=== PATIENT | female | born 1950 | race Caucasian/White ===

== ENCOUNTER → 2017-08-13 | Outpatient (CLI) | payer MEDICARE, MEDICAID | END | disposition home or self-care (01) | LOC: CFH 07:46 | PROVIDERS: ATTEND Family Medicine | DX: K83.8 Other specified diseases of biliary tract (principal); J18.9 Pneumonia, unspecified organism | CPT/HCPCS: 71046; 76700 ==

== ENCOUNTER → 2017-12-24 | Outpatient (CLI) | payer MEDICARE, MEDICAID | END | disposition home or self-care (01) | LOC: CFH 09:39 | PROVIDERS: ATTEND Nurse Practitioner Family | DX: J18.9 Pneumonia, unspecified organism (principal) | CPT/HCPCS: 71046 ==

== ENCOUNTER 2018-02-01 07:56 | Day surgery (SDC) | payer MEDICARE, MEDICAID ==
[~2018-02-01] VITALS: Ht 174 cm; Wt 68.3 kg
[~2018-02-01 07:56] MED LIST: BUPR300T49 PO; FLUO40CA9 PO; MORP100T27 PO; MORP30TA81 PO; MS CONTIN PO; ZOLP10TA PO
[2018-02-01 08:24] VITALS: BP 124/86
[2018-02-01] MEDS ORDERED: LACTATED RINGERS 1,000 ML IV SCH (08:29)
[2018-02-01] MEDS ORDERED: LIDOCAINE-MPF 1%, 2ML INFIL ONE (08:30)
[2018-02-01] MEDS ORDERED: PROPOFOL 10 MG/ML, 20ML ONE (09:21)
[2018-02-01] MEDS ORDERED: PROMETHAZINE 25 MG/ML, 1ML IV PRN (09:30)
[2018-02-01] MEDS ORDERED: FENTANYL PF 100 MCG/2ML IV PRN (09:30)
[2018-02-01] MEDS ORDERED: ONDANSETRON 2MG/ML, 2ML IV PRN (09:30)
[2018-02-01] MEDS ORDERED: OXYcodone 5 MG/5 ML ORAL.SOL UDC PO PRN (09:30)
[2018-02-01] MEDS ORDERED: ACETAMINOPHEN 325 MG TABLET PO PRN (09:30)
[2018-02-01] MEDS ORDERED: ONDANSETRON ODT 8 MG PO PRN (09:30)
== END 2018-02-01 11:10 | disposition home or self-care (01) ==
LOC: OUT 07:56
PROVIDERS: ATTEND Internal Medicine
DX: K31.89 Other diseases of stomach and duodenum (principal); K21.0 Gastro-esophageal reflux disease with esophagitis; J44.9 Chronic obstructive pulmonary disease, unspecified; F32.9 Major depressive disorder, single episode, unspecified; G89.29 Other chronic pain; F41.9 Anxiety disorder, unspecified; D64.9 Anemia, unspecified; Z98.890 Other specified postprocedural states; Z99.81 Dependence on supplemental oxygen; Z79.899 Other long term (current) drug therapy; Z88.1 Allergy status to other antibiotic agents; Z88.5 Allergy status to narcotic agent; Z80.0 Family history of malignant neoplasm of digestive organs; Z86.010 Personal history of colon polyps; Z87.39 Personal history of other diseases of the musculoskeletal system and connective tissue; Z85.828 Personal history of other malignant neoplasm of skin; Z87.891 Personal history of nicotine dependence; Z87.01 Personal history of pneumonia (recurrent); Z96.659 Presence of unspecified artificial knee joint
CPT/HCPCS: 43239; 88305; 93005; J2704; J7120

== ENCOUNTER → 2018-03-30 | Outpatient (CLI) | payer MEDICARE ==
[~2018-03-30] MED LIST changes: +MORP20CA17 PO; +Oxygen INH
== END | disposition home or self-care (01) ==
LOC: STAR 14:22
PROVIDERS: ATTEND Internal Medicine
DX: Z02.9 Encounter for administrative examinations, unspecified (principal)

== ENCOUNTER 2018-04-05 06:32 | Day surgery (SDC) | payer MEDICARE ==
[~2018-04-05] VITALS: Ht 177.8 cm; Wt 70.6 kg
[2018-04-05 06:56] VITALS: BP 113/78
[2018-04-05] MEDS ORDERED: LACTATED RINGERS 1,000 ML IV SCH (06:59)
[2018-04-05] MEDS ORDERED: LIDOCAINE-MPF 1%, 2ML INFIL ONE (07:00)
[2018-04-05] MEDS ORDERED: LIDOCAINE/PF 1%, 30ML ONE (07:04)
[2018-04-05] MEDS ORDERED: LABETALOL 5MG/ML, 20ML IV PRN (08:00)
[2018-04-05] MEDS ORDERED: PROCHLORPERAZINE 5 MG/ML, 2ML IV PRN (08:00)
[2018-04-05] MEDS ORDERED: MORPHINE SULFATE 4 MG/ML, 1ML IVPush PRN (08:00)
[2018-04-05] MEDS ORDERED: MEPERIDINE/PF 25MG/0.5ML IVPush PRN (08:00)
[2018-04-05] MEDS ORDERED: METOPROLOL 1 MG/ML, 5ML IV PRN (08:00)
[2018-04-05] MEDS ORDERED: ALBUTEROL SULFATE 2.5 MG/3 ML NPPB PRN (08:00)
[2018-04-05] MEDS ORDERED: EPHEDRINE 50 MG/ML, 1ML IVPush PRN (08:00)
[2018-04-05] MEDS ORDERED: ACETAMINOPHEN 325 MG TABLET PO PRN (08:00)
[2018-04-05] MEDS ORDERED: LORazepam 2 MG/ML, 1ML IVPush PRN (08:00)
[2018-04-05] MEDS ORDERED: MIDAZOLAM 1 MG/ML, 2ML IV PRN (08:00)
[2018-04-05] MEDS ORDERED: hydrALAzine 20 MG/ML, 1ML IV PRN (08:00)
[2018-04-05] MEDS ORDERED: OXYcodone 5 MG/5 ML ORAL.SOL UDC PO PRN (08:00)
[2018-04-05] MEDS ORDERED: FENTANYL PF 100 MCG/2ML IV PRN (08:00)
[2018-04-05] MEDS ORDERED: FENTANYL PF 100 MCG/2ML ONE (08:05)
[2018-04-05] MEDS ORDERED: MIDAZOLAM 1 MG/ML, 2ML ONE (08:05)
[2018-04-05] MEDS ORDERED: PROPOFOL 10 MG/ML, 20ML ONE (08:13)
[2018-04-05] MEDS ORDERED: ONDANSETRON 2MG/ML, 2ML ONE ×2 (08:14)
[2018-04-05] MEDS ORDERED: SUCCINYLCHOLINE 20 MG/ML, 10ML ONE (08:14)
[2018-04-05] MEDS ORDERED: DEXAMETHASONE 4 MG/ML, 1ML ONE (08:14)
== END 2018-04-05 11:00 | disposition home or self-care (01) ==
LOC: OUT 06:32
PROVIDERS: ATTEND Internal Medicine
DX: K83.8 Other specified diseases of biliary tract (principal); K44.9 Diaphragmatic hernia without obstruction or gangrene; K86.89 Other specified diseases of pancreas; F32.9 Major depressive disorder, single episode, unspecified; F41.9 Anxiety disorder, unspecified; D64.9 Anemia, unspecified; J44.9 Chronic obstructive pulmonary disease, unspecified; Z87.39 Personal history of other diseases of the musculoskeletal system and connective tissue; Z85.828 Personal history of other malignant neoplasm of skin; Z96.659 Presence of unspecified artificial knee joint; Z87.891 Personal history of nicotine dependence; Z88.5 Allergy status to narcotic agent; Z88.8 Allergy status to other drugs, medicaments and biological substances
CPT/HCPCS: 43237; J1100; J2250; J2704; J3010; J3490; J7120; J2405; J0330

== ENCOUNTER 2018-06-07 16:10 | Inpatient (IN) | payer MEDICARE ==
[~2018-06-07] VITALS: Ht 172.7 cm; Wt 64.8 kg
[2018-06-07] MEDS ORDERED: LORazepam 2 MG/ML, 1ML ONE (16:26)
[2018-06-07] MEDS ORDERED: ONDANSETRON 2MG/ML, 2ML ONE (16:27)
[2018-06-07] MEDS ORDERED: ONDANSETRON 2MG/ML, 2ML IVPush ONE (16:30)
[2018-06-07] MEDS ORDERED: LORazepam 2 MG/ML, 1ML IVPush PRN ×2 (16:30→18:30)
[2018-06-07 16:58] LABS: BASOPHILS # (AUTO) 0.02 x10^3/uL (0-0.1); BASOPHILS % (AUTO) 0 % (0-1); EOSINOPHILS # (AUTO) 0.02 x10^3/uL (0-0.4); EOSINOPHILS % (AUTO) 0 % (1-7); LYMPHOCYTES % (AUTO) 8 % (22-44); MD NO; MEAN CORPUSCULAR HEMOGLOBIN 27.3 pg (27.0-34.8); MEAN CORPUSCULAR HGB CONC 33.1 g/dL (32.4-35.8); MEAN CORPUSCULAR VOLUME 82.5 fL (80-100); MEAN PLATELET VOLUME 7.8 fL (7.4-10.4); MONOCYTES % (AUTO) 4 % (2-9); NEUTROPHILS # (AUTO) 8.49 x10^3/uL (1.8-6.8); NEUTROPHILS % (AUTO) 87 % (42-75); PLATELET COUNT 254 x10^3/uL (130-400); RED BLOOD COUNT 5.27 x10^6/uL (3.82-5.3)
[2018-06-07 17:04] LABS: INTERNATIONAL NORMALIZED RATIO 1.12 (0.93-1.1); PROTHROMBIN TIME 11.8 Seconds (9.6-11.5)
[2018-06-07 17:07] LABS: ALANINE AMINOTRANSFERASE 21 U/L (12-78); ALBUMIN 4.1 g/dL (3.4-5.0); ANION GAP 13 mmol/L (5-15); CALCIUM 9.1 mg/dL (8.5-10.1); CHLORIDE 104 mmol/L (98-107); CREATININE 1.03 mg/dL (0.55-1.02)
[2018-06-07 17:12] LABS: ALKALINE PHOSPHATASE 79 U/L (45-117); BILIRUBIN,TOTAL 0.6 mg/dL (0.2-1.0); TOTAL PROTEIN 8.5 g/dL (6.4-8.2); TROPONIN I < 0.015 ng/mL (0.000-0.045)
[2018-06-07] MEDS ORDERED: BACL20TA PO (17:21)
[2018-06-07] MEDS ORDERED: GABA-827 PO (17:21)
[2018-06-07] MEDS ORDERED: DIPH25CA61 PO (17:21)
[2018-06-07] MEDS ORDERED: DOXE10CA PO (17:22)
[2018-06-07] MEDS ORDERED: PANT20TA3 PO (17:23)
[2018-06-07] MEDS ORDERED: MELA1TAB6 PO (17:23)
[2018-06-07] MEDS ORDERED: POTASSIUM CHLORIDE 20 MEQ TAB.ER.PRT PO ONE (18:30)
[2018-06-07] MEDS ORDERED: POLYETHYLENE GLYCOL 17 GM PACKET PO PRN (18:30)
[2018-06-07] MEDS ORDERED: MELATONIN 3 MG TABLET PO PRN (18:30)
[2018-06-07] MEDS ORDERED: BISACODYL 10 MG SUPP PR PRN (18:30)
[2018-06-07] MEDS ORDERED: ONDANSETRON ODT 4 MG PO PRN (18:30)
[2018-06-07] MEDS ORDERED: hydrALAzine 20 MG/ML, 1ML IV PRN (19:00)
[2018-06-07 19:14] VITALS: BP 171/95
[2018-06-07 21:20] VITALS: BP 147/84
[2018-06-07] MEDS: GABAPENTIN 400 MG CAPSULE PO SCH (21:22)
[2018-06-07] MEDS: SODIUM CHLORIDE 0.9% 1,000 ML IV SCH (21:22)
[2018-06-07] MEDS: HEPARIN 5,000 UNITS/ML, 1ML SQ SCH (21:23)
[2018-06-07] MEDS: SODIUM CHLORIDE FLUSH 10ML SYR IVF SCH (21:23)
[2018-06-08 01:06] VITALS: BP 161/83
[2018-06-08] MEDS: ACETAMINOPHEN 325 MG TABLET PO PRN (02:17)
[2018-06-08] MEDS: PANTOPRAZOLE 20MG TABLET PO SCH (04:58)
[2018-06-08] MEDS: HEPARIN 5,000 UNITS/ML, 1ML SQ SCH ×3 (04:58→21:07)
[2018-06-08] MEDS: GABAPENTIN 400 MG CAPSULE PO SCH ×4 (04:58→21:07)
[2018-06-08] MEDS: SODIUM CHLORIDE 0.9% 1,000 ML IV SCH ×2 (04:58→21:07)
[2018-06-08 05:45] LABS: BASOPHILS # (AUTO) 0.02 x10^3/uL (0-0.1); BASOPHILS % (AUTO) 0 % (0-1); EOSINOPHILS % (AUTO) 0 % (1-7); LYMPHOCYTES # (AUTO) 0.55 x10^3/uL (1-3.4); LYMPHOCYTES % (AUTO) 6 % (22-44); MD NO; MEAN CORPUSCULAR HEMOGLOBIN 27.4 pg (27.0-34.8); MEAN CORPUSCULAR HGB CONC 33.5 g/dL (32.4-35.8); MEAN CORPUSCULAR VOLUME 81.7 fL (80-100); MEAN PLATELET VOLUME 8.3 fL (7.4-10.4); MONOCYTES # (AUTO) 0.66 x10^3/uL (0.2-0.8); MONOCYTES % (AUTO) 7 % (2-9); NEUTROPHILS # (AUTO) 8.14 x10^3/uL (1.8-6.8); NEUTROPHILS % (AUTO) 87 % (42-75); PLATELET COUNT 240 x10^3/uL (130-400); RED BLOOD COUNT 4.72 x10^6/uL (3.82-5.3); RED CELL DISTRIBUTION WIDTH 14.8 % (9.6-15.2)
[2018-06-08 05:55] LABS: ALANINE AMINOTRANSFERASE 19 U/L (12-78); ALBUMIN 3.3 g/dL (3.4-5.0); ANION GAP 10 mmol/L (5-15); CALCIUM 8.6 mg/dL (8.5-10.1); CHLORIDE 107 mmol/L (98-107); CREATININE 0.82 mg/dL (0.55-1.02)
[2018-06-08 05:56] LABS: BILIRUBIN,TOTAL 0.6 mg/dL (0.2-1.0)
[2018-06-08 05:57] LABS: ALKALINE PHOSPHATASE 67 U/L (45-117); TOTAL PROTEIN 7.1 g/dL (6.4-8.2)
[2018-06-08 07:34] VITALS: BP 158/79
[2018-06-08] MEDS: SODIUM CHLORIDE FLUSH 10ML SYR IVF SCH ×2 (09:00→21:08)
[2018-06-08] MEDS ORDERED: BUPROPION SR 150 MG TABLET PO SCH (09:00)
[2018-06-08] MEDS ORDERED: DOXEPIN 10 MG CAPSULE PO SCH (09:00)
[2018-06-08] MEDS: THIAMINE 100MG TABLET PO SCH (10:29)
[2018-06-08] MEDS: SENNA/DOCUSATE TABLET PO SCH (10:29)
[2018-06-08] MEDS: LISINOPRIL 10 MG TABLET PO SCH (10:30)
[2018-06-08] MEDS ORDERED: POTASSIUM CHLORIDE 20 MEQ TAB.ER.PRT PO ONE (10:30)
[2018-06-08] MEDS ORDERED: MAGNESIUM SULFATE PMX 2GM/50ML 50 ML IV ONE (10:30)
[2018-06-08] MEDS: FLUOXETINE HCL 20 MG CAPSULE PO SCH (10:30)
[2018-06-08] MEDS: BACLOFEN 10 MG TABLET PO SCH (10:31)
[2018-06-08] MEDS ORDERED: LORazepam 2 MG/ML, 1ML IVPush ONE (11:30)
[2018-06-08 14:15] VITALS: BP 108/70
[2018-06-08 19:56] VITALS: BP 115/70
[2018-06-09 00:57] VITALS: BP 119/77
[2018-06-09 02:51] VITALS: BP 115/78
[2018-06-09] MEDS: SODIUM CHLORIDE 0.9% 1,000 ML IV SCH ×2 (03:11→09:27)
[2018-06-09] MEDS: PANTOPRAZOLE 20MG TABLET PO SCH (05:40)
[2018-06-09] MEDS: HEPARIN 5,000 UNITS/ML, 1ML SQ SCH ×3 (05:40→20:19)
[2018-06-09] MEDS: GABAPENTIN 400 MG CAPSULE PO SCH ×4 (05:40→20:19)
[2018-06-09 07:16] VITALS: BP 146/88
[2018-06-09] MEDS: THIAMINE 100MG TABLET PO SCH (09:22)
[2018-06-09] MEDS: BACLOFEN 10 MG TABLET PO SCH (09:23)
[2018-06-09] MEDS: FLUOXETINE HCL 20 MG CAPSULE PO SCH (09:23)
[2018-06-09] MEDS: LISINOPRIL 10 MG TABLET PO SCH (09:24)
[2018-06-09] MEDS: SODIUM CHLORIDE FLUSH 10ML SYR IVF SCH ×2 (09:25→20:20)
[2018-06-09] MEDS: SENNA/DOCUSATE TABLET PO SCH (09:25)
[2018-06-09 09:51] LABS: AMPHETAMINE SCREEN, URINE Positive (Negative); BARBITURATE SCREEN, URINE Negative (Negative); BENZODIAZEPINE SCREEN, URINE Negative (Negative); CANNABINOID SCREEN, URINE Positive (Negative); COCAINE SCREEN, URINE Negative (Negative); METHADONE SCREEN, URINE Negative (Negative); OPIATE SCREEN, URINE Positive (Negative)
[2018-06-09 10:19] LABS: MICROSCOPIC INDICATED
[2018-06-09 10:29] LABS: CULTURE INDICATED? YES
[2018-06-09 13:52] VITALS: BP 142/82
[2018-06-09 17:16] LABS: ANION GAP 11 mmol/L (5-15); CALCIUM 7.7 mg/dL (8.5-10.1); CHLORIDE 109 mmol/L (98-107); CREATININE 0.74 mg/dL (0.55-1.02)
[2018-06-09 17:25] LABS: THYROID STIMULATING HORMONE 0.738 mIU/L (0.358-3.740)
[2018-06-09 20:00] VITALS: BP 183/100
[2018-06-09 21:11] VITALS: BP_SYST 166; BP_SYST 173; BP_DIAS 84; BP_DIAS 94
[2018-06-10 02:12] VITALS: BP 158/90
[2018-06-10] MEDS: PANTOPRAZOLE 20MG TABLET PO SCH (05:48)
[2018-06-10] MEDS: HEPARIN 5,000 UNITS/ML, 1ML SQ SCH ×3 (05:48→21:23)
[2018-06-10] MEDS: GABAPENTIN 400 MG CAPSULE PO SCH ×4 (05:48→21:23)
[2018-06-10 07:57] VITALS: BP 154/80
[2018-06-10] MEDS: SODIUM CHLORIDE FLUSH 10ML SYR IVF SCH ×2 (09:00→21:24)
[2018-06-10] MEDS: BACLOFEN 10 MG TABLET PO SCH (09:44)
[2018-06-10] MEDS: THIAMINE 100MG TABLET PO SCH (09:44)
[2018-06-10] MEDS: ZONISAMIDE 50 MG CAPSULE PO SCH (09:45)
[2018-06-10] MEDS: FLUOXETINE HCL 20 MG CAPSULE PO SCH (09:45)
[2018-06-10] MEDS: SENNA/DOCUSATE TABLET PO SCH (09:45)
[2018-06-10] MEDS ORDERED: SIMETHICONE DROPS 40 MG/0.6 ML BOTTLE PO PRN (10:00)
[2018-06-10] MEDS: CEFTRIAXONE PMX 1GM/50ML 50 ML IV SCH (10:29)
[2018-06-10] MEDS ORDERED: THIA100T67 PO (13:04)
[2018-06-10] MEDS ORDERED: MELA1TAB6 PO (13:04)
[2018-06-10] MEDS ORDERED: CEFT1VIA15 IV (13:04)
[2018-06-10] MEDS ORDERED: ZONI50CA2 PO (13:04)
[2018-06-10] MEDS ORDERED: SENN1TAB8 PO (13:04)
[2018-06-10] MEDS ORDERED: LISI-167 PO (13:04)
[2018-06-10] MEDS ORDERED: ACET325T14 PO (13:04)
[2018-06-10 14:37] VITALS: BP_SYST 118; BP_SYST 151; BP_DIAS 84; BP_DIAS 93
[2018-06-10] MEDS: ACETAMINOPHEN 325 MG TABLET PO PRN (17:38)
[2018-06-10 20:11] VITALS: BP 155/95
[2018-06-10 21:21] VITALS: BP 157/84
[2018-06-10] MEDS: LISINOPRIL 10 MG TABLET PO SCH (21:23)
[2018-06-11 00:45] VITALS: BP 156/97
[2018-06-11] MEDS: GABAPENTIN 400 MG CAPSULE PO SCH ×4 (05:14→22:07)
[2018-06-11] MEDS: PANTOPRAZOLE 20MG TABLET PO SCH (05:14)
[2018-06-11] MEDS: HEPARIN 5,000 UNITS/ML, 1ML SQ SCH ×3 (05:14→22:08)
[2018-06-11 07:07] VITALS: BP 166/96
[2018-06-11] MEDS: SENNA/DOCUSATE TABLET PO SCH (09:00)
[2018-06-11] MEDS: SODIUM CHLORIDE FLUSH 10ML SYR IVF SCH ×2 (09:00→22:07)
[2018-06-11] MEDS: ZONISAMIDE 50 MG CAPSULE PO SCH (09:14)
[2018-06-11] MEDS: THIAMINE 100MG TABLET PO SCH (09:14)
[2018-06-11] MEDS: LISINOPRIL 10 MG TABLET PO SCH ×2 (09:15→22:07)
[2018-06-11] MEDS: BACLOFEN 10 MG TABLET PO SCH (09:15)
[2018-06-11] MEDS: FLUOXETINE HCL 20 MG CAPSULE PO SCH (09:15)
[2018-06-11] MEDS: CEFTRIAXONE PMX 1GM/50ML 50 ML IV SCH (10:39)
[2018-06-11 13:09] VITALS: BP 163/96
[2018-06-11 19:50] VITALS: BP 158/71
[2018-06-12 00:20] VITALS: BP 155/82
[2018-06-12] MEDS: PANTOPRAZOLE 20MG TABLET PO SCH (05:16)
[2018-06-12] MEDS: ACETAMINOPHEN 325 MG TABLET PO PRN (05:16)
[2018-06-12] MEDS: HEPARIN 5,000 UNITS/ML, 1ML SQ SCH ×2 (05:16→13:40)
[2018-06-12] MEDS: GABAPENTIN 400 MG CAPSULE PO SCH ×2 (05:16→11:08)
[2018-06-12 05:44] LABS: BASOPHILS # (AUTO) 0.03 x10^3/uL (0-0.1); BASOPHILS % (AUTO) 0 % (0-1); EOSINOPHILS # (AUTO) 0.02 x10^3/uL (0-0.4); EOSINOPHILS % (AUTO) 0 % (1-7); LYMPHOCYTES # (AUTO) 1.79 x10^3/uL (1-3.4); LYMPHOCYTES % (AUTO) 15 % (22-44); MD NO; MEAN CORPUSCULAR HEMOGLOBIN 27.2 pg (27.0-34.8); MEAN CORPUSCULAR VOLUME 82.2 fL (80-100); MEAN PLATELET VOLUME 7.8 fL (7.4-10.4); MONOCYTES # (AUTO) 0.98 x10^3/uL (0.2-0.8); MONOCYTES % (AUTO) 8 % (2-9); NEUTROPHILS # (AUTO) 8.89 x10^3/uL (1.8-6.8); NEUTROPHILS % (AUTO) 76 % (42-75); PLATELET COUNT 349 x10^3/uL (130-400); RED BLOOD COUNT 5.14 x10^6/uL (3.82-5.3); RED CELL DISTRIBUTION WIDTH 15.4 % (9.6-15.2)
[2018-06-12 05:52] LABS: ANION GAP 12 mmol/L (5-15); CALCIUM 8.8 mg/dL (8.5-10.1); CHLORIDE 107 mmol/L (98-107); CREATININE 0.79 mg/dL (0.55-1.02)
[2018-06-12] MEDS ORDERED: POTASSIUM CHLORIDE 20 MEQ TAB.ER.PRT PO ONE ×2 (07:00→12:00)
[2018-06-12] MEDS: ZONISAMIDE 50 MG CAPSULE PO SCH (07:49)
[2018-06-12] MEDS: THIAMINE 100MG TABLET PO SCH (07:49)
[2018-06-12] MEDS: BACLOFEN 10 MG TABLET PO SCH (07:49)
[2018-06-12] MEDS: SODIUM CHLORIDE FLUSH 10ML SYR IVF SCH (07:50)
[2018-06-12] MEDS: LISINOPRIL 10 MG TABLET PO SCH (07:50)
[2018-06-12] MEDS: SENNA/DOCUSATE TABLET PO SCH (07:57)
[2018-06-12] MEDS: FLUOXETINE HCL 20 MG CAPSULE PO SCH (07:57)
[2018-06-12 08:02] LABS: CLOSTRIDIUM DIFFICILE ANTIGEN NEGATIVE; CLOSTRIDIUM DIFFICILE TOXIN NEGATIVE (Negative)
[2018-06-12 08:19] VITALS: BP 155/87
[2018-06-12] MEDS: CEFTRIAXONE PMX 1GM/50ML 50 ML IV SCH (10:12)
[2018-06-12 13:33] VITALS: BP 159/100
== END 2018-06-12 17:52 | DRG 100 ==
LOC: ED 17:42 → EDIP 17:43 → ED 17:56 → 4EST 18:52 → 4WST 06-09 01:54
PROVIDERS: ADMIT Internal Medicine; ATTEND Internal Medicine
DX: R56.9 Unspecified convulsions (principal); G93.41 Metabolic encephalopathy; J98.11 Atelectasis; E87.2 Acidosis; N39.0 Urinary tract infection, site not specified; E87.5 Hyperkalemia; F15.10 Other stimulant abuse, uncomplicated; F11.10 Opioid abuse, uncomplicated; F12.10 Cannabis abuse, uncomplicated; I45.81 Long QT syndrome; E87.6 Hypokalemia; F32.9 Major depressive disorder, single episode, unspecified; R19.7 Diarrhea, unspecified; G89.29 Other chronic pain; I10 Essential (primary) hypertension; I25.10 Atherosclerotic heart disease of native coronary artery without angina pectoris; J45.909 Unspecified asthma, uncomplicated; Z82.0 Family history of epilepsy and other diseases of the nervous system; Z87.891 Personal history of nicotine dependence; Z88.5 Allergy status to narcotic agent; Z88.8 Allergy status to other drugs, medicaments and biological substances
CPT/HCPCS: 36415; 70450; 70553; 71045; 76700; 80048; 80053; 80307; 81001; 82140; 82607; 82962; 83605; 83735; 84132; 84443; 84484; 85025; 85610; 87040; 87077; 87086; 87186; 87324; 90656; 93005; 95819; 96374; 99285; G0378; J0696; J1644; J2405; 92523-GN; J0360; J3475; J7030

== ENCOUNTER 2018-07-26 09:39 | Outpatient (CLI) | payer MEDICARE | END 2018-07-26 23:59 | disposition home or self-care (01) | LOC: RAD 09:39 | PROVIDERS: ATTEND Nurse Practitioner Family | DX: R11.0 Nausea (principal) | CPT/HCPCS: 78264; A9541 ==

== ENCOUNTER → 2018-07-26 | Outpatient (CLI) | payer MEDICARE ==
[~2018-07-26] MED LIST changes: +ACET325T14 PO; +BACL20TA PO; +CEFT1VIA15 IV; +DIPH25CA61 PO; +DOXE10CA PO; +GABA-827 PO; +LISI-167 PO; +MELA1TAB6 PO; +PANT20TA3 PO; +SENN1TAB8 PO; +THIA100T67 PO; +ZONI50CA2 PO
== END | disposition home or self-care (01) ==
LOC: CVU 09:37
PROVIDERS: ATTEND Nurse Practitioner Family
DX: I35.1 Nonrheumatic aortic (valve) insufficiency (principal); I37.1 Nonrheumatic pulmonary valve insufficiency; R11.0 Nausea; Z87.891 Personal history of nicotine dependence
CPT/HCPCS: 93306

== ENCOUNTER 2019-05-23 12:54 | Outpatient (CLI) | payer MEDICARE, MEDICAID ==
[~2019-05-23 12:54] MED LIST changes: +SENN-177 PO; -SENN1TAB8 PO
[2019-05-23 15:53] LABS: CREATININE 1.02 mg/dL (0.55-1.02)
== END 2019-05-23 23:59 | disposition home or self-care (01) ==
LOC: CFH 12:54
PROVIDERS: ATTEND Internal Medicine
DX: Z12.31 Encounter for screening mammogram for malignant neoplasm of breast (principal); N64.89 Other specified disorders of breast; Z01.812 Encounter for preprocedural laboratory examination; Z87.891 Personal history of nicotine dependence; Z80.0 Family history of malignant neoplasm of digestive organs
CPT/HCPCS: 36415; 82565; 84520; 77067

== ENCOUNTER 2020-10-04 13:30 | Outpatient (CLI) | payer MEDICARE, MEDICAID ==
[~2020-10-04 13:30] MED LIST changes: +MELA1TAB46 PO; -MELA1TAB6 PO; -PANT20TA3 PO; +PANT20TA4 PO; +ZONI50CA10 PO; -ZONI50CA2 PO
== END 2020-10-04 23:59 | disposition home or self-care (01) ==
LOC: CFH 13:30
PROVIDERS: ATTEND Family Medicine
DX: Z12.31 Encounter for screening mammogram for malignant neoplasm of breast (principal)
CPT/HCPCS: 77063; 77067

== ENCOUNTER → 2020-11-12 | Outpatient (CLI) | payer MEDICARE, MEDICAID | END | disposition home or self-care (01) | LOC: EDSTATUS 10-28 11:45 → CFH 10:38 | PROVIDERS: ATTEND Nurse Practitioner | DX: M81.0 Age-related osteoporosis without current pathological fracture (principal); N95.8 Other specified menopausal and perimenopausal disorders | CPT/HCPCS: 77080 ==